=== PATIENT | female | born 1980 | race Caucasian/White ===

== ENCOUNTER → 2023-05-17 | Outpatient (CLI) | payer OTHER ==
[~2023-05-17] MED LIST: B-12500 MCG; Magnesium250 MG PO; NALT50 PO
== END | disposition home or self-care (01) ==
LOC: LAB 12:48 → LAB SHORT 12:48
DX: L98.9 Disorder of the skin and subcutaneous tissue, unspecified (principal)
CPT/HCPCS: 87070; 87075; 87205